=== PATIENT | female | born 1950 | race Caucasian/White ===

== ENCOUNTER 2016-05-10 12:07 | Outpatient (CLI) | payer OTHER ==
[2016-05-10 12:30] LABS: #Basophils 0.1 thou/uL (0.0-0.2); #Eosinphils 0.1 thou/uL (0.0-0.7); #Lymphocytes 2.2 thou/uL (1.20-3.40); #Monocytes 0.5 thou/uL (0.11-0.59); #Neutrophils 3.2 thou/uL (1.40-6.50); %Basophils 1.2 % (0.0-1.0); %Eosinophils 1.1 % (0.0-10.0); %Lymphocytes 35.7 % (21.0-51.0); %Monocytes 8.9 % (0.0-10.0); %Neutrophils 53.2 % (42.0-75.0); Hemoglobin 14.1 g/dL (12.0-16.0); Mean Corpuscular Hemoglobin 30.8 pg (27.0-31.0); Mean Corpuscular Volume 90.5 fl (81.0-99.0); Mean Platelet Volume 7.5 fL (7.4-10.4); Platelet Count 342 thou/uL (130-400); RBC Distribution Width 11.9 % (11.5-14.5); Red Blood Cell (RBC) Count 4.58 mill/uL (4.20-5.40); White Blood Cell (WBC) Count 6.1 thou/uL (4.8-10.8)
[2016-05-10 12:40] LABS: Hemoglobin A1c 5.3 % (4.0-6.0)
[2016-05-10 13:10] LABS: ALT (SGPT) 24 U/L (0-55); AST (SGOT) 20 U/L (5-34); Albumin 4.6 g/dL (3.4-4.8); Alkaline Phosphatase 74 U/L (40-150); Anion Gap 18 mmol/L (10-20); BUN (Urea Nitrogen) 12 mg/dL (9.8-20.1); Bilirubin, Total 0.5 mg/dL (0.2-1.2); Calc. Creatinine Clearance 0 mL/min (70-130); Calcium 9.9 mg/dL (7.8-10.44); Carbon Dioxide 27 mmol/L (23-31); Cardiac Risk 3.5 (Less than 4.5); Chloride 94 mmol/L (98-107); Cholesterol 220 mg/dL (< 200 Desired); Estimated GFR-MDRD 70; Globulin 2.5 g/dL (2.4-3.5); Glucose 93 mg/dL (80-115); HDL Cholesterol 62 mg/dL (>60 Neg Risk); LDL Cholesterol, Calculated 139 mg/dL; Potassium 3.5 mmol/L (3.5-5.1); Protein, Total 7.1 g/dL (5.8-8.1); Sodium 135 mmol/L (136-145); Triglycerides 95 mg/dL (Less than 150)
[2016-05-10 13:45] LABS: Free T4 (Free Thyroxine) 1.14 ng/dL (0.70-1.48); Thyroid Stimulating Hormone 1.5861 uIU/mL (0.35-4.94)
== END 2016-05-10 12:08 | disposition home or self-care (01) ==
LOC: MADLABBHPM 12:07
PROVIDERS: ATTEND Family Medicine
DX: E03.9 Hypothyroidism, unspecified (principal); F32.9 Major depressive disorder, single episode, unspecified; I10 Essential (primary) hypertension
CPT/HCPCS: 36415; 80053; 80061; 83036; 84439; 84443; 85025